=== PATIENT | female | born 1980 | race Caucasian/White ===

== ENCOUNTER 2018-08-23 13:49 | Emergency (ER) | payer BC ==
[2018-08-23] MEDS ORDERED: Ketorolac 30 MG/ML SDV IVPUSH ONE (14:45)
[2018-08-23] MEDS ORDERED: Sodium Chloride 0.9% 1,000 ML IV SCH (14:45)
[2018-08-23] MEDS ORDERED: Prochlorperazine 10 MG/2 ML SDV IVPUSH ONE (14:46)
[2018-08-23] MEDS ORDERED: Sodium Chloride 0.9% 10 ML Syringe FLUSH PRN (14:46)
[2018-08-23] MEDS ORDERED: diphenhydrAMINE 50 MG/ML SDV IVPUSH ONE (14:46)
--- NOTE | 2018-08-23 14:49 | EDM.PDOC ---
ED HPI GENERAL MEDICAL PROBLEM - General Chief Complaint: Headache Stated Complaint: MIGRAINE Time Seen by Provider: 08/23/18 14:24 Source of Information: Reports: Patient, Family, RN Notes Reviewed History Limitations: Reports: No Limitations - History of Present Illness INITIAL COMMENTS - FREE TEXT/NARRATIVE: 38-year-old female presents emergency department today complaint of migraine headache, she has a known history of migraine controlled with Imitrex, she woke this morning did try her Imitrex without any relief. 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 History: Reports: Fracture Neurological History: Reports: Migraines Psychiatric History: Reports: Depression Endocrine/Metabolic History: Reports: Hypothyroidism - Past Surgical History HEENT Surgical History: Reports: LASIK Female Surgical History: Reports: Section Social & Family History - Tobacco Use Smoking Status *Q: Never Smoker - Caffeine Use Caffeine Use: Reports: Coffee - Recreational Drug Use Recreational Drug Use: No ED ROS GENERAL - Review of Systems Review Of Systems: See Below Constitutional: Reports: No Symptoms HEENT: Reports: Eye Pain Respiratory: Reports: No Symptoms Cardiovascular: Reports: No Symptoms GI/Abdominal: Reports: Nausea, Vomiting Neurological: Reports: Headache - Physical Exam Exam: See Below Exam Limited By: No Limitations General Appearance: Alert, Mild Distress Eye Exam: Bilateral Eye: EOMI, Normal Fundi, Normal Inspection, PERRL Throat/Mouth: No Airway Compromise Respiratory/Chest: No Respiratory Distress Course - Vital Signs Last Recorded V/S: Last Vital Signs Temp 95.1 F L 08/23/18 14:34 Pulse 62 08/23/18 14:34 Resp 16 08/23/18 14:34 BP 158/81 H 08/23/18 14:34 Pulse Ox 97 08/23/18 14:34 - Orders/Labs/Meds Orders: Active Orders 24 hr Category Date Time Status Peripheral IV Care [RC] . DIRECTED Care 08/23/18 14:46 Active Sodium Chloride 0.9% [Normal Saline] 1,000 ml Med 08/23/18 14:45 Active IV ASDIRECTED Sodium Chloride 0.9% [Saline Flush] Med 08/23/18 14:46 Active 10 ml FLUSH ASDIRECTED PRN Peripheral IV Insertion Adult [OM.PC] Urgent Oth 08/23/18 14:45 Ordered Medication Orders Sodium Chloride (Normal Saline) 1,000 mls @ 999 mls/hr IV ASDIRECTED TORIBIO Last Admin: 08/23/18 14:56 Dose: 999 mls/hr Sodium Chloride (Saline Flush) 10 ml FLUSH ASDIRECTED PRN PRN Reason: Keep Vein Open Last Admin: 08/23/18 14:57 Dose: 10 ml Meds: Medications Generic Name Dose Route Start Last Admin Trade Name Freq PRN Reason Stop Dose Admin Sodium Chloride 1,000 mls @ 999 mls/hr 08/23/18 14:45 08/23/18 14:56 Normal Saline IV 999 mls/hr ASDIRECTED TORIBIO Administration Sodium Chloride 10 ml 08/23/18 14:46 08/23/18 14:57 Saline Flush FLUSH 10 ml ASDIRECTED PRN Administration Keep Vein Open Discontinued Medications Generic Name Dose Route Start Last Admin Trade Name Freq PRN Reason Stop Dose Admin Diphenhydramine HCl 50 mg 08/23/18 14:46 08/23/18 14:56 Benadryl IVPUSH 08/23/18 14:47 50 mg ONETIME ONE Administration Ketorolac Tromethamine 30 mg 08/23/18 14:45 08/23/18 14:56 Toradol IVPUSH 08/23/18 14:46 30 mg ONETIME ONE Administration Prochlorperazine Edisylate 5 mg 08/23/18 14:46 08/23/18 14:56 Compazine IVPUSH 08/23/18 14:47 5 mg ONETIME ONE Administration Departure - Departure Time of Disposition: 16:40 Disposition: Home, Self-Care 01 Condition: Fair Clinical Impression: Migraine - Discharge Information Referrals: Sohan Lugo MD [Primary Care Provider] - Forms: ED Department Discharge Additional Instructions: Please followup with your primary care provider in 3-5 days if not better, please call return to the emergency department with worsening of symptoms. - My Orders Last 24 Hours: My Active Orders 08/23/18 14:45 Sodium Chloride 0.9% [Normal Saline] 1,000 ml IV ASDIRECTED Peripheral IV Insertion Adult [OM.PC] Urgent 08/23/18 14:46 Peripheral IV Care [RC] . DIRECTED Sodium Chloride 0.9% [Saline Flush] 10 ml FLUSH ASDIRECTED PRN - Assessment/Plan Last 24 Hours: My Active Orders 08/23/18 14:45 Sodium Chloride 0.9% [Normal Saline] 1,000 ml IV ASDIRECTED Peripheral IV Insertion Adult [OM.PC] Urgent 08/23/18 14:46 Peripheral IV Care [RC] . DIRECTED Sodium Chloride 0.9% [Saline Flush] 10 ml FLUSH ASDIRECTED PRN Plan: Assessment Acuity = acute Site and laterality = migraine headache without aura Etiology = unclear etiology Manifestations = none Location of injury = Home Lab values = none Plan She had good improvement combination 1 L normal saline, Toradol, Compazine and Benadryl plan is discharge home follow-up primary care as needed This note was dictated using [employer] voice recognition software please call with any questions on syntax or grammar.
== END 2018-08-23 16:57 | disposition home or self-care (01) ==
LOC: JP.ED 13:49
DX: G43.909 Migraine, unspecified, not intractable, without status migrainosus (principal); E03.9 Hypothyroidism, unspecified; Z79.899 Other long term (current) drug therapy
CPT/HCPCS: 96361; 96374; 96375; 99283; J0780; J1200; J1885; J7030

== ENCOUNTER 2019-01-04 00:47 | Emergency (ER) | payer BC ==
[2019-01-04] MEDS ORDERED: Ketorolac 30 MG/ML SDV IVPUSH ONE (01:32)
[2019-01-04] MEDS ORDERED: methylPREDNISolone Sodium Succinate 125 MG/2 ML SDV IVPUSH ONE (01:32)
[2019-01-04] MEDS ORDERED: Sodium Chloride 0.9% 10 ML Syringe FLUSH PRN (01:32)
[2019-01-04] MEDS ORDERED: HYDROmorphone 0.5 MG/0.5 ML Syringe IVPUSH ONE (01:32)
--- NOTE | 2019-01-04 01:43 | EDM.PDOC ---
ED HPI GENERAL MEDICAL PROBLEM - General Chief Complaint: Back Pain or Injury Stated Complaint: HERNIATED DISCS Time Seen by Provider: 01/04/19 01:10 Source of Information: Reports: Patient History Limitations: Reports: No Limitations - History of Present Illness INITIAL COMMENTS - FREE TEXT/NARRATIVE: 38-year-old female with known disc herniations, recently had an MRI followed by steroid injections 11 days ago. She thought the steroid injections were beneficial, but today was having increased pain in the right leg in at 5 PM was "lifting a box" when she had a sudden increase in pain and paresthesias and numbness in the right leg. No incontinence. She had some old tramadol and cyclobenzaprine, took several doses without significant improvement. She arrives very uncomfortable. 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 Neurological History: Reports: Migraines Psychiatric History: Reports: Depression Endocrine/Metabolic History: Reports: Hypothyroidism - Past Surgical History HEENT Surgical History: Reports: LASIK Female Surgical History: Reports: Section Social & Family History - Tobacco Use Smoking Status *Q: Never Smoker - Caffeine Use Caffeine Use: Reports: Coffee ED ROS GENERAL - Review of Systems Review Of Systems: See Below Constitutional: Denies: Fever, Chills Respiratory: Denies: Shortness of Breath GI/Abdominal: Denies: Abdominal Pain, Nausea, Vomiting : Reports: No Symptoms Skin: Denies: Rash Neurological: Reports: Paresthesia (Paresthesia of the posterior right leg from the thigh down to the foot) ED EXAM,LOWER BACK PAIN/INJURY - Physical Exam Exam: See Below Exam Limited By: No Limitations General Appearance: Alert, Mild Distress (Difficult to examine because she does not tolerate any movement of the right leg, she is most comfortable standing) Eye Exam: Bilateral Eye: Normal Inspection Respiratory/Chest: No Respiratory Distress Back Exam: Other (Very tender to any palpation of the paralumbar area) Extremities: Other (She does have numbness to palpation on the posterior thigh and calf, normal plantar and dorsiflexion strength) Course - Vital Signs Last Recorded V/S: Last Vital Signs Temp 98.4 F 01/04/19 01:05 Pulse 73 01/04/19 01:05 Resp 14 01/04/19 01:05 BP 137/95 H 01/04/19 01:05 Pulse Ox 98 01/04/19 01:05 - Orders/Labs/Meds Orders: Active Orders 24 hr Category Date Time Status Saline Lock Insert [OM.PC] Routine Oth 01/04/19 01:32 Ordered Meds: Medications Discontinued Medications Generic Name Dose Route Start Last Admin Trade Name Freq PRN Reason Stop Dose Admin Hydromorphone HCl 0.5 mg 01/04/19 01:32 01/04/19 01:43 Dilaudid IVPUSH 01/04/19 01:33 0.5 mg ONETIME ONE Administration Ketorolac Tromethamine 30 mg 01/04/19 01:32 01/04/19 01:42 Toradol IVPUSH 01/04/19 01:33 30 mg ONETIME ONE Administration Methylprednisolone Sodium Succinate 125 mg 01/04/19 01:32 01/04/19 01:42 Solu-Medrol IVPUSH 01/04/19 01:33 125 mg ONETIME ONE Administration Sodium Chloride 10 ml 01/04/19 01:32 01/04/19 01:42 Saline Flush FLUSH 10 ml ASDIRECTED PRN Administration Keep Vein Open - Re-Assessments/Exams Free Text/Narrative Re-Assessment/Exam: 01/04/19 01:45 MRI results were reviewed, her most significant disc degeneration is L5-S1 with also involvement of L3 and L4. An IV was started, the patient was given 0.5 mg of IV Dilaudid, 30 mg of IV Toradol and 125 mg of IV Solu-Medrol. 01/04/19 02:11 The IV medications did provide some improvement. She was discharged with 10 additional doses of Percocet to take instead of tramadol and we'll try to increase activity as tolerated. She'll return if worsening such as incontinence or foot drop. Otherwise recheck with her primary provider next week if not improving satisfactorily. Departure - Departure Time of Disposition: 02:49 Disposition: Home, Self-Care 01 Clinical Impression: Lumbar back pain with radiculopathy affecting right lower extremity - Discharge Information Instructions: Radicular Pain Referrals: Sohan Lugo MD [Primary Care Provider] - Forms: ED Department Discharge Care Plan Goals: Continue with an anti-inflammatory such as ibuprofen or naproxen along with muscle relaxers. Add Percocet for extra pain control and increase activity as tolerated. Recheck early next week if not improving satisfactorily, or return sooner if worsening such as incontinence or weakness. - My Orders Last 24 Hours: My Active Orders 01/04/19 01:32 Saline Lock Insert [OM.PC] Routine - Assessment/Plan Last 24 Hours: My Active Orders 01/04/19 01:32 Saline Lock Insert [OM.PC] Routine
== END 2019-01-04 02:50 | disposition home or self-care (01) ==
LOC: JP.ED 00:47
DX: M54.16 Radiculopathy, lumbar region (principal); E03.9 Hypothyroidism, unspecified; Z79.899 Other long term (current) drug therapy
CPT/HCPCS: 96374; 96375; 99283; J1170; J1885; J2930

== ENCOUNTER 2022-03-03 08:50 | Emergency (ER) | payer BC, MEDICAID ==
[2022-03-03] MEDS ORDERED: Sodium Chloride 0.9% 10 ML Syringe FLUSH PRN (09:38)
[2022-03-03] MEDS ORDERED: Sodium Chloride 0.9% 1,000 ML IV ONE (09:41)
[2022-03-03] MEDS ORDERED: Metoclopramide 10 MG/2 ML SDV IVPUSH ONE (09:42)
[2022-03-03] MEDS ORDERED: Ketorolac 30 MG/ML SDV IVPUSH ONE (09:51)
[2022-03-03] MEDS ORDERED: diphenhydrAMINE 50 MG/ML SDV IVPUSH ONE (10:56)
[2022-03-03] MEDS ORDERED: Dexamethasone 4 MG/ML SDV IVPUSH ONE (10:57)
== END 2022-03-03 12:05 | disposition home or self-care (01) ==
LOC: JP.ED 08:50
DX: G43.909 Migraine, unspecified, not intractable, without status migrainosus (principal); Z79.899 Other long term (current) drug therapy
CPT/HCPCS: 96361; 96374; 96375; 99283; J1100; J1200; J1885; J2765; J3490; J7030